=== PATIENT | male | born 1985 | race Caucasian/White ===

== ENCOUNTER 2017-04-13 22:38 | Inpatient (IN) | payer MEDICAID ==
[~2017-04-13] VITALS: Ht 170.2 cm; Wt 93.4 kg
[~2017-04-13 22:38] MED LIST: AMO125L8 PO; ANTIVERT12.5 MG PO; FIORICET1 TAB PO; NOR10T PO
[2017-04-13 23:40] LABS: BASOPHIL % 0.8 % (0-2); PLATELET COUNT 259 x10^3mcL (130-400)
[2017-04-13 23:52] LABS: CALCIUM 8.9 mg/dL (8.5-10.1); CARBON DIOXIDE 25.8 mmol/L (21-32); CHLORIDE SERUM 104 mmol/L (98-107); CREATININE SERUM 0.9 mg/dL (0.7-1.3); GFR1 > 60 mL/min; GLUCOSE SERUM 114 mg/dL (74-106); POTASSIUM SERUM 3.8 mmol/L (3.5-5.1); SODIUM SERUM 138 mmol/L (136-145)
[2017-04-13 23:57] LABS: ALBUMIN 3.6 g/dL (3.4-5.0); ALKALINE PHOSPHATASE 54 U/L (46-116); ALT/SGPT 83 U/L (16-63); AMYLASE 53 U/L (25-115); AST/SGOT 23 U/L (15-37); BILIRUBIN TOTAL 0.8 mg/dL (0.20-1.00); LIPASE 102 IU/L (73-393); TOTAL PROTEIN, SERUM 7.6 g/dL (6.4-8.2)
[2017-04-14 01:42] LABS: microscopic required? NO
[2017-04-14 02:07] LABS: UA SPECIFIC GRAVITY 1.015 (1.005-1.035); urine erythrocyte NEGATIVE (NEGATIVE)
[2017-04-14 02:17] LABS: AMPHETAMINE QUAL UR NONE DETECTED (NEG <=1000)
[2017-04-14 03:54] LABS: CHOLESTEROL/HDL RATIO 2.7; PHOSPHOROUS 3.7 mg/dL (2.5-4.9)
[2017-04-14 03:58] LABS: T3 TOTAL 1.62 ng/mL
[2017-04-14 03:59] LABS: FREE T4 1.02 ng/dL (0.76-1.46); T4(THYROXINE) 9.3 ug/dL (4.7-13.3)
[2017-04-14 04:16] VITALS: BP 135/62
[2017-04-14 05:58] VITALS: BP 139/68
[2017-04-14 09:06] LABS: PLATELET COUNT 255 x10^3mcL (130-400); RED CELL DISTRIBUTION WIDTH 12.1 % (11.5-14.5)
[2017-04-14 09:07] LABS: BASOPHIL % 4.5 % (0-2)
[2017-04-14 09:15] LABS: CALCIUM 8.8 mg/dL (8.5-10.1); CARBON DIOXIDE 28.8 mmol/L (21-32); CHLORIDE SERUM 104 mmol/L (98-107); GFR1 > 60 mL/min; GLUCOSE SERUM 105 mg/dL (74-106); POTASSIUM SERUM 3.9 mmol/L (3.5-5.1); SODIUM SERUM 139 mmol/L (136-145)
[2017-04-14 10:30] VITALS: BP 112/65
[2017-04-14 18:30] VITALS: BP 121/69
[2017-04-14 22:11] VITALS: BP 109/63
[2017-04-15 06:24] VITALS: BP 102/63
[2017-04-15 07:19] LABS: BASOPHIL % 0.4 % (0-2); PLATELET COUNT 239 x10^3mcL (130-400); RED CELL DISTRIBUTION WIDTH 13.1 % (11.5-14.5)
[2017-04-15 07:24] LABS: CALCIUM 8.5 mg/dL (8.5-10.1); CARBON DIOXIDE 29.1 mmol/L (21-32); CHLORIDE SERUM 106 mmol/L (98-107); CREATININE SERUM 0.9 mg/dL (0.7-1.3); GFR1 > 60 mL/min; GLUCOSE SERUM 94 mg/dL (74-106); POTASSIUM SERUM 4.2 mmol/L (3.5-5.1); SODIUM SERUM 139 mmol/L (136-145)
[2017-04-15 09:33] VITALS: BP 106/68
[2017-04-15 17:12] VITALS: BP 106/65
[2017-04-16 06:10] LABS: BASOPHIL % 0.3 % (0-2); PLATELET COUNT 264 x10^3mcL (130-400); RED CELL DISTRIBUTION WIDTH 13.2 % (11.5-14.5)
[2017-04-16 07:00] LABS: CALCIUM 8.6 mg/dL (8.5-10.1); CARBON DIOXIDE 28.3 mmol/L (21-32); CHLORIDE SERUM 104 mmol/L (98-107); GFR1 > 60 mL/min; GLUCOSE SERUM 104 mg/dL (74-106); POTASSIUM SERUM 4.4 mmol/L (3.5-5.1); SODIUM SERUM 139 mmol/L (136-145)
[2017-04-16 07:28] VITALS: BP 111/72
[2017-04-16 09:16] VITALS: BP 121/81
[2017-04-16] MEDS ORDERED: NORCO1 TA1 PO (16:13)
[2017-04-16] MEDS ORDERED: BACTRIM DS1 TAB PO (16:19)
[2017-04-16] MEDS ORDERED: LAC PO (16:19)
[2017-04-16] MEDS ORDERED: FLA500 PO (16:19)
[2017-04-16 16:39] VITALS: BP 121/81
[2017-04-16 16:45] VITALS: BP 119/76
[2017-04-16] MEDS ORDERED: MOT400 PO (18:41)
== END 2017-04-16 19:18 | disposition home or self-care (01) | DRG 244 ==
LOC: ED 22:38 → DU 04-14 01:56 → MU 04-14 01:56 → DU 04-14 03:27 → MU 04-14 10:40
PROVIDERS: Emergency Medicine; Family Medicine; ADMIT Family Medicine Sports Medicine
DX: K57.32 Diverticulitis of large intestine without perforation or abscess without bleeding (principal); K76.0 Fatty (change of) liver, not elsewhere classified; R74.0 Nonspecific elevation of levels of transaminase and lactic acid dehydrogenase [LDH]; F11.10 Opioid abuse, uncomplicated; Z87.891 Personal history of nicotine dependence; Z68.30 Body mass index [BMI] 30.0-30.9, adult
CPT/HCPCS: 82962; 83880; 84439; 90658; J1100; J1956; J2270; J2405; J3490; J7030; J7042; J7070; Q0092; Q9963

== ENCOUNTER 2017-05-09 19:37 | Inpatient (IN) | payer MEDICAID ==
[~2017-05-09] VITALS: Ht 170.2 cm; Wt 85.3 kg
[~2017-05-09 19:37] MED LIST changes: +BACTRIM DS1 TAB PO; +FLA500 PO; +LAC PO; +MOT400 PO; +NORCO1 TA1 PO
[2017-05-09 21:36] LABS: BASOPHIL % 0.3 % (0-2); PLATELET COUNT 261 x10^3mcL (130-400); RED CELL DISTRIBUTION WIDTH 12.9 % (11.5-14.5)
[2017-05-09 21:45] LABS: CARBON DIOXIDE 27.7 mmol/L (21-32); CHLORIDE SERUM 105 mmol/L (98-107); GFR1 > 60 mL/min; GLUCOSE SERUM 99 mg/dL (74-106); POTASSIUM SERUM 3.8 mmol/L (3.5-5.1); SODIUM SERUM 140 mmol/L (136-145)
[2017-05-09 21:50] LABS: ALKALINE PHOSPHATASE 47 U/L (46-116); ALT/SGPT 119 U/L (16-63); AMYLASE 55 U/L (25-115); AST/SGOT 58 U/L (15-37); BILIRUBIN TOTAL 0.44 mg/dL (0.20-1.00); LIPASE 130 IU/L (73-393); TOTAL PROTEIN, SERUM 7.6 g/dL (6.4-8.2)
[2017-05-10 00:33] VITALS: BP 135/93
[2017-05-10 05:54] VITALS: BP 106/55
[2017-05-10 08:58] VITALS: BP 123/76
[2017-05-10 11:16] LABS: UA SPECIFIC GRAVITY 1.015 (1.005-1.035); microscopic required? YES; urine erythrocyte NEGATIVE (NEGATIVE)
[2017-05-10 11:29] LABS: AMPHETAMINE QUAL UR NONE DETECTED (NEG <=1000)
[2017-05-10 13:13] VITALS: BP 114/84
[2017-05-10 18:12] VITALS: BP 125/79
[2017-05-10 21:21] VITALS: BP 104/65
[2017-05-11 05:38] VITALS: BP 100/58
[2017-05-11 06:54] LABS: CALCIUM 8.3 mg/dL (8.5-10.1); CHLORIDE SERUM 107 mmol/L (98-107); CREATININE SERUM 0.9 mg/dL (0.7-1.3); GFR1 > 60 mL/min; GLUCOSE SERUM 89 mg/dL (74-106); POTASSIUM SERUM 4.1 mmol/L (3.5-5.1); SODIUM SERUM 139 mmol/L (136-145)
[2017-05-11 07:00] LABS: BASOPHIL % 0.2 % (0-2); PLATELET COUNT 226 x10^3mcL (130-400); RED CELL DISTRIBUTION WIDTH 13.1 % (11.5-14.5)
[2017-05-11 09:20] VITALS: BP 118/82
== END 2017-05-11 10:23 | disposition left against medical advice (07) | DRG 244 ==
LOC: ED 19:37 → DU 23:46 → MU 23:46 → DU 23:46 → MU 05-10 21:51
PROVIDERS: Emergency Medicine; ADMIT Student in an Organized Health Care Education/Training Program
DX: K57.92 Diverticulitis of intestine, part unspecified, without perforation or abscess without bleeding (principal); K76.0 Fatty (change of) liver, not elsewhere classified; K59.03 Drug induced constipation; T40.2X5A Adverse effect of other opioids, initial encounter; Z68.29 Body mass index [BMI] 29.0-29.9, adult; Y92.009 Unspecified place in unspecified non-institutional (private) residence as the place of occurrence of the external cause
CPT/HCPCS: J1170; J1885; J1956; J2405; J3490; J7030; Q0092; Q9967

== ENCOUNTER 2017-06-30 13:24 | Emergency (ER) | payer OTHER ==
[~2017-06-30] VITALS: Ht 170.2 cm; Wt 93.4 kg
[2017-06-30 13:38] VITALS: Ht 170.2 cm; Wt 93.4 kg
[2017-06-30 18:35] LABS: BASOPHIL % 0.5 % (0-2); PLATELET COUNT 305 x10^3mcL (130-400); RED CELL DISTRIBUTION WIDTH 13.5 % (11.5-14.5)
[2017-06-30 18:45] LABS: CALCIUM 8.9 mg/dL (8.5-10.1); CARBON DIOXIDE 24.5 mmol/L (21-32); CHLORIDE SERUM 104 mmol/L (98-107); CREATININE SERUM 0.8 mg/dL (0.7-1.3); GFR1 > 60 mL/min; GLUCOSE SERUM 94 mg/dL (74-106); POTASSIUM SERUM 3.7 mmol/L (3.5-5.1); SODIUM SERUM 138 mmol/L (136-145)
[2017-06-30 18:50] LABS: ALKALINE PHOSPHATASE 49 U/L (46-116); ALT/SGPT 88 U/L (16-63); AST/SGOT 20 U/L (15-37); BILIRUBIN TOTAL 0.4 mg/dL (0.20-1.00); LIPASE 120 IU/L (73-393); TOTAL PROTEIN, SERUM 7.7 g/dL (6.4-8.2)
[2017-06-30 19:14] VITALS: BP 134/76
== END 2017-06-30 20:00 | disposition home or self-care (01) ==
LOC: ED 13:24
PROVIDERS: Emergency Medicine
DX: R10.32 Left lower quadrant pain (principal)
CPT/HCPCS: J2270; J2405